=== PATIENT | female | born 1985 | race Caucasian/White ===

== ENCOUNTER 2024-01-29 12:22 | Emergency (ER) | payer OTHER, MEDICAID ==
[~2024-01-29] VITALS: Ht 157.5 cm; Wt 52.3 kg
[2024-01-29] MEDS: ibuprofen tablet 400 MG TABLET PO ONE (14:01)
[2024-01-29] MEDS ORDERED: IBUP-862 PO (14:31)
[2024-01-29] MEDS ORDERED: GABA300C PO (14:31)
[2024-01-29 14:50] VITALS: BP 137/82; PULSE 71; RESP 16; TEMP 98.9; O2SAT 100
== END 2024-01-29 14:51 | disposition home or self-care (01) ==
LOC: ER 12:23
DX: S30.0XXA Contusion of lower back and pelvis, initial encounter (principal); S70.02XA Contusion of left hip, initial encounter; Z79.1 Long term (current) use of non-steroidal anti-inflammatories (NSAID); Z79.899 Other long term (current) drug therapy; X58.XXXA Exposure to other specified factors, initial encounter; Y93.01 Activity, walking, marching and hiking; Y92.89 Other specified places as the place of occurrence of the external cause; Y99.8 Other external cause status
CPT/HCPCS: 72100; 72170; 73552; 73590; 99284